=== PATIENT | female | born 1990 | race Caucasian/White ===

== ENCOUNTER 2016-10-08 18:47 | Emergency (ER) | payer OTHER ==
[2016-10-08 18:56] VITALS: BP 136/94; PULSE 113; TEMP 98; BMI 18.2
--- NOTE | 2016-10-08 19:17 | PDOC ---
History of Present Illness - General Chief Complaint: Rash Stated Complaint: RASH Time Seen by Provider: 10/08/16 19:14 - History of Present Illness Initial Comments: 10/08/16 19:17 Patient is a 26-year-old female with a past medical history of asthma presenting to the ED today complaining of a rash under her eyes. Patient states her rash began approximately 1 week ago after she tried a new face wash. Patient states that her rash is very itchy and dry. She is tried multiple base washes and soaps to try and relieve the dry skin and itching. Nothing has worked. She states that her rash is now worse than 1 week ago. Denies fevers, chills, headache, sinus pain or pressure, ear fullness, sore throat, and congestion. Past History - Past Medical History Allergies/Adverse Reactions: Allergies Allergy/AdvReac Type Severity Reaction Status Date / Time No Known Allergies Allergy Verified 10/08/16 18:56 Home Medications: Ambulatory Orders Albuterol Sulfate Inhaler - [Ventolin HFA Inhaler -] 1 - 2 inh PO Q4H PRN #1 inhaler 10/08/16 Methylprednisolone [Medrol Dose Cuco] 4 mg PO ASDIR #21 tablet 10/08/16 Other medical history: NONE - Psycho/Social/Smoking Cessation Hx Anxiety: No Suicidal Ideation: No Smoking History: Current every day smoker Number of Cigarettes Smoked Daily: 4 Information on smoking cessation initiated: Yes 'Breaking Loose' booklet given: 10/08/16 Hx Alcohol Use: Yes (SOCIAL) Drug/Substance Use Hx: No Substance Use Type: None *Physical Exam - Vital Signs Last Vital Signs Temp Pulse Resp BP Pulse Ox 98.0 F 113 H 20 136/94 97 10/08/16 18:53 10/08/16 18:53 10/08/16 18:53 10/08/16 18:53 10/08/16 18:53 - Physical Exam General Appearance: Yes: Nourished, Disheveled, Alcohol on Breath. No: Apparent Distress HEENT: positive: EOMI. negative: CAT (Pupils fixed and dilated.) Neck: positive: Trachea midline, Normal Thyroid, Supple Respiratory/Chest: positive: Wheezing (Scattered wheezes with fair aeration to the bases). negative: Respiratory Distress, Accessory Muscle Use Cardiovascular: positive: Regular Rhythm, Tachycardia Integumentary: positive: Normal Color, Dry, Warm, Erythema, Rash (Pruritic, red , flaking rash surrounding both eyes and bridging over the nose. ) Medical Decision Making - Medical Decision Making 10/08/16 19:57 Patient appears to have an allergic dermatitis given the dryness and severity of itching the patient reports. We'll give patient Claritin and ranitidine to help with the itch. Did not give patient Benadryl as there was obvious alcohol on the breath and pupils were dilated suspicious for cocaine abuse. Educated patient on proper face washes that will help with the redness and irritation, specifically patient should not be using face washes with stents in them. Recommended Aquaphor after bathing on the rash. We'll also prescribe Medrol Dosepak as an outpatient. We will give him 1 DuoNeb now given scattered wheezing on exam. Patient reports she needs a new albuterol inhaler we will order one for her. 10/08/16 20:43 After DuoNeb treatment mugs now sound clear to auscultation bilaterally. We will discharge home at this time. Patient understands discharge instructions and has no questions at this time. *DC/Admit/Observation/Transfer Diagnosis at time of Disposition: Allergic dermatitis, Asthma exacerbation - Discharge Dispostion Admit: No - Prescriptions Prescriptions: Methylprednisolone [Medrol Dose Cuco] 4 mg PO ASDIR #21 tablet Albuterol Sulfate Inhaler - [Ventolin HFA Inhaler -] 1 - 2 inh PO Q4H PRN #1 inhaler PRN Reason: Short Of Breath/Wheezing - Patient Instructions Printed Discharge Instructions: DI for Asthma -- Adult, DI for Atopic Dermatitis - Adult Additional Instructions: You have an allergic skin rash. You were prescribed a Medrol dose pack. Take the full packet as directed. Use Aquaphor on the affected areas at night or after you wash your face. Avoid scratching your face. Use dove unscented bar soap to wash your face. CereVe moisturizing face wash is also safe to wash your face with. This is over the counter at the pharmacy. You can also take Zyertec to help with the itching. 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 Return to the ED if you experience fevers, chills, new headaches, or any new symptoms
[2016-10-08] MEDS ORDERED: ALBUTEROL SO4 2.5/IPRATROPIUM 0.5 INH SOL 3 ML VIAL.NEB. NEB ONE (19:49)
[2016-10-08] MEDS ORDERED: RANITIDINE HCL 150 MG TABLET (FP) PO ONE (20:31)
[2016-10-08] MEDS ORDERED: LORATADINE 10 MG TABLET PO ONE (20:35)
[2016-10-08] MEDS ORDERED: RANITIDINE HCL 150 MG TABLET (FP) ONE (20:35)
[2016-10-08] MEDS ORDERED: LORATADINE 10 MG TABLET ONE (20:36)
== END 2016-10-08 20:40 | disposition home or self-care (01) ==
LOC: JERFT 18:47
PROC: 3E0F7GC Introduction of Other Therapeutic Substance into Respiratory Tract, Via Natural or Artificial Opening (ICD-10-PCS; principal; 2016-10-08)
DX: L23.5 Allergic contact dermatitis due to other chemical products (principal); T55.0X1A Toxic effect of soaps, accidental (unintentional), initial encounter; Y92.038 Other place in apartment as the place of occurrence of the external cause; J45.901 Unspecified asthma with (acute) exacerbation
CPT/HCPCS: 94640; 99281-25